=== PATIENT | female | born 1975 | race Caucasian/White ===

== ENCOUNTER 2022-10-18 07:55 | Emergency (ER) | payer MEDICAID, SELFPAY ==
[2022-10-18 08:14] VITALS: BP 146/71; PULSE 100; RESP 18; TEMP 36.8; O2SAT 99; BMI 28.3
[2022-10-18 10:21] LABS: Appearance Urine Clear; Color Urine Yellow; Glucose Urine UA Negative (Negative); Leukocyte Esterase Urine Negative (Negative); Nitrite Urine Negative (Negative); PH 7.5 (5.0-9.0); Specific Gravity - Urine <= 1.005 (1.005-1.025); Urine Blood Negative (Negative); Urine Ketones Negative (Negative); Urine Protein Negative (Neg-Trace)
[2022-10-18 10:37] LABS: UPreg QC Valid YES; Urine Pregnancy NEGATIVE (NEGATIVE)
--- NOTE | 2022-10-18 10:48 | ED.GENADULT ---
HPI - General Adult General Chief complaint: General Medical Stated complaint: infected belly button Time Seen by Provider: 10/18/22 09:53 Source: patient Mode of arrival: ambulatory Limitations: no limitations History of Present Illness HPI narrative: 47-year-old female presents to ED for evaluation of umbilical infection/abscess. Patient states 2 weeks ago she had redness around her umbilicus with some mild pus drainage and was given antibiotics from a hospital came to the ED for evaluation believes is not getting better. Patient denies any dysuria, hematuria, fever, chills, nausea, vomiting, abdominal pain. Patient states mild back pain. patient denies any history of IV drug use or history of HIV/hep C. Patient denies any urinary/bowel incontinence. patient denies any numbness/tingling in lower extremity or trouble walking. Related Data Previous Rx's Medication Instructions Recorded naproxen 500 mg tablet 500 mg PO BID PRN pain 7 days #14 10/18/22 tabs Allergies Allergy/AdvReac Type Severity Reaction Status Date / Time No Known Allergies Allergy Verified 10/18/22 08:17 Review of Systems Review of Systems: umbilical wound. Back pain Yes all other systems are reviewed and are negative [facility] Social History Social History Advance Directives: No Advance Directives Information Provided: Yes Physical Exam ED Vital Signs: Vital Signs - 24 hr 10/18/22 08:14 Temperature 98.2 F Pulse Rate 100 Respiratory Rate 18 Blood Pressure 146/71 H Pulse Oximetry 99 Oxygen Delivery Method Room Air BMI result Body Mass Index 28.3 Const General: cooperative, healthy appearing, comfortable, no acute distress, well developed, alert and awake Orientation/consciousness: oriented to person, oriented to place, oriented to time and patient oriented x3 HENMT Head: Yes normal to inspection, Yes No palpable skull fracture present, Yes normocephalic, Yes atraumatic and No abrasion Eyes General: appearance normal, both eyes and all related structures Neck Neck: Yes normal visual inspection, Yes full ROM, Yes no lymphadenopathy, Yes no meningeal signs, Yes trachea midline, Yes supple, No anterior neck swelling and No tender Chest Chest palpation & inspection: normal inspection of the chest and normal palpation of entire chest wall Resp Effort & Inspection: normal respiratory effort and able to speak in complete sentences Auscultation: clear to auscultation bilaterally Cardio Jugular venous distension: no JVD Heart sounds: S1 normal heart sound present and S2 normal heart sound present GI Other: Umbilicus normal and negative for erythema, pus discharge, brown discharge, blue/discoloration, or tenderness. Inspection: Yes normal to inspection and No abdominal wall ecchymosis Palpation (GI): Soft to palpation, not firm, nontender, no guarding and not rigid General: No CVA tenderness and Yes no CVA tenderness Back/Spine/Pelvis Back: no CVA tenderness, No CVA tenderness and No back tenderness Skin General skin exam: no rashes or lesions noted and elasticity normal Neuro General: oriented to person, oriented to place, oriented to time, patient oriented x3, gait normal, tone normal, moves all extremities, Normal light touch and pain sensation, no meningeal signs, no focal motor deficits, CN's II-XI intact bilaterally and normal sensation to monofilament Extrem General: Yes normal to inspection and Yes full ROM Psych Appearance: grossly normal, well kempt and not disheveled Medical Decision Making Medical Decision Making MDM Narrative: 47-year-old female presents to the ED for evaluation of umbilical wound and also back pain. Patient show me picture of umbilicus 2 weeks ago and was positive for erythema and pus drainage from umbilicus. To day presently there is no erythema around umbilicus and negative for any pus discharge from umbilicus or tenderness on palpation. Negative for mass or on palpation or fluctuance. Patient agree infection has improved and is resolving. Negative for any spine tenderness UA was sent to rule out any infection and . Patient is safe for discharge. Presently no signs of cellulitis or abscess. Not suspecting appendicitis or any intra-abdominal infectious etiology. Not suspecting spinal epidural abscess or cauda equinus syndrome. Differential Diagnosis Differential Diagnoses: The differential diagnosis associated with the presentation includes ( abscess, cellulitis, fistula, appendicitis, diverticulitis, colitis, ectopic, UA, UTI, epidural abscess, cauda equinus syndrome) Admission/Observation Consideration of admission/observation: Escalation of care including admission/observation considered Lab Data [facility] Lab Attestation statement: I reviewed the patient's lab results. Labs: Lab Results 10/18/22 10/18/22 Range/Units 10:14 10:14 Urine Color Yellow Urine Appearance Clear Urine pH 7.5 (5.0-9.0) Ur Specific [place] <= 1.005 (1.005-1.025) Urine Protein Negative (Neg-Trace) mg/dL Urine Glucose (UA) Negative (Negative) mg/dL Urine Ketones Negative (Negative) mg/dL Urine Blood Negative (Negative) Urine Nitrite Negative (Negative) Ur Leukocyte Esterase Negative (Negative) Urine Test NEGATIVE (NEGATIVE) External Record Review External record reviewed: Other (ED notes) Tests considered The following testing was considered but not selected: CT scan Prescription Management I considered prescription management with: Pain Medication Discharge Plan Discharge Clinical Impression: Encounter for wound re-check, Back pain Patient Disposition: Home, Self-Care Instructions: Back Pain (ED) Additional Instructions: return to the ED immediately for any abdominal pain, umbilical pain, nausea, vomiting, fever, chills, flank pain, severe back pain, dysuria, hematuria, vaginal discharge, pus discharge around umbilicus, erythema, or any other concerning symptoms. Prescriptions: New naproxen 500 mg tablet 500 mg PO BID PRN (Reason: pain) 7 Days Qty: 14 0RF Stand Alone Forms: Work/School Release Interventions: ED Discharge Assessment Last Done: 10/18/22 11:03 Discharge Date/Time: 10/18/22 11:03 Print Language: Maori
== END 2022-10-18 11:03 | disposition home or self-care (01) ==
PROVIDERS: Physician Assistant; Emergency Provider Emergency Medicine
DX: M54.50 Low back pain, unspecified (principal); Z79.899 Other long term (current) drug therapy
CPT/HCPCS: 81003; 81025; 99282; 99283

== ENCOUNTER 2022-10-28 08:40 | Outpatient (REF) | payer MEDICAID, SELFPAY ==
--- NOTE | ~2022-10-28 | MM_ITS ---
EXAMINATION: MM DIAGNOSTIC DIGITAL BREAST TOMOSYNTHESIS, BILATERAL WITH BREAST IMPLANTS CLINICAL INFORMATION: Evaluate for possible left breast implant rupture. The lifetime risk of breast cancer based on the Tyrer-Cuzick Model is 8.3%. COMPARISON: Mammography: There are no prior mammograms for comparison. TECHNIQUE: Digital mammography is performed in craniocaudal and mediolateral oblique views. Digital breast tomosynthesis is performed in implant-displaced craniocaudal and implant-displaced mediolateral oblique views. Synthesized 2D images are generated from the tomosynthesis. Computer-aided detection (CAD) is performed for this exam. FINDINGS: There are scattered areas of fibroglandular density (ACR BI-RADS breast composition Category b). There are bilateral, retroglandular, mammographically intact, saline breast implants. There are no significant masses, abnormal calcifications, or other abnormalities. Results are provided to the patient at time of visit by the technologist. MM/MM tomosynthesis diag imp BI IMPRESSION: No mammographic evidence of malignancy. No evidence of implant rupture. Please note that in patients with saline breast implants, a rupture would result in a dramatic decrease in the breast volume on the side of rupture. ASSESSMENT: BI-RADS BI-RADS 1 - Negative RECOMMENDATION: 1 year F/U This patient's information was entered into a reminder system with a target due date for their next mammogram.
== END 2022-10-28 08:41 | disposition home or self-care (01) ==
LOC: HO.MAMMO 08:40
PROVIDERS: PCP Nurse Practitioner Primary Care; Visit Provider Nurse Practitioner Primary Care
DX: T85.9XXA Unspecified complication of internal prosthetic device, implant and graft, initial encounter (principal)
CPT/HCPCS: 77062; 77066

== ENCOUNTER → 2022-10-28 09:00 | Outpatient (BNV) | payer MEDICAID, SELFPAY | PROVIDERS: PCP Nurse Practitioner Primary Care; Visit Provider Radiology Diagnostic Radiology | DX: Z98.82 Breast implant status (principal) | CPT/HCPCS: 77066 ==